=== PATIENT | female | born 1970 | race African-American/Black ===

== ENCOUNTER 2017-10-06 23:44 | Emergency (ER) | payer BC, MEDICAID ==
[~2017-10-06] VITALS: Ht 172.7 cm; Wt 83.0 kg
[~2017-10-06 23:44] MED LIST: FERR325T50 PO; LEVE100012 PO; METO25TA5 PO; POT10T PO
[2017-10-06 23:53] VITALS: BP 167/102
[2017-10-07] MEDS ORDERED: cloNIDine HCL 0.1 MG TAB PO ONE (00:15)
== END 2017-10-07 01:06 | disposition home or self-care (01) ==
LOC: ER 23:45
DX: I10 Essential (primary) hypertension (principal); Z98.51 Tubal ligation status; Z88.6 Allergy status to analgesic agent; Z88.8 Allergy status to other drugs, medicaments and biological substances; Z91.040 Latex allergy status

== ENCOUNTER → 2019-01-29 | Outpatient (CLI) | payer BC ==
[2019-01-29 10:00] LABS: Basophils # (auto) 0 uL; Basophils % (auto) 0.4 % (0.0-2.0); Eosinophils # (auto) 0.1 uL; Eosinophils % (auto) 3.3 % (0.0-7.0); Hematocrit 43.4 % (36.0-46.0); Hemoglobin 14.7 g/dL (12.2-16.2); Lymphocytes # (auto) 0.8 uL; Lymphocytes % (auto) 28.1 % (10.0-50.0); Mean Corpuscular Hemoglobin 29.5 pg (28.0-32.0); Mean Corpuscular Volume 86.8 fL (80.0-100.0); Monocytes # (auto) 0.3 uL; Monocytes % (auto) 9.5 % (0.0-12.0); Neutrophils # (auto) 1.8 uL; Neutrophils % (auto) 58.7 % (37.0-80.0); Nucleated Red Blood Cells % 0.1 %; Platelet Count (auto) 201 10^3/uL (140-450); Red Cell Distribution Width 13.4 % (11.8-14.3)
[2019-01-29 10:04] LABS: Potassium 3.9 mmol/L (3.5-5.1)
[2019-01-29 10:13] LABS: Albumin 4.3 g/dL (3.4-5.0); BUN/Creatinine Ratio 14.8; Bilirubin, Total 0.5 mg/dL (0.2-1.0); Calcium 9.8 mg/dL (8.5-10.1); Magnesium 2.2 mg/dL (1.6-2.6); Total Protein 8.3 g/dL (6.4-8.2)
== END | disposition home or self-care (01) ==
LOC: LAB 08:21
PROVIDERS: ATTEND Physician Assistant
DX: I10 Essential (primary) hypertension (principal); E61.2 Magnesium deficiency; G40.909 Epilepsy, unspecified, not intractable, without status epilepticus; E78.49 Other hyperlipidemia; G93.5 Compression of brain
CPT/HCPCS: 36415; 80053; 80061; 83735; 85025